=== PATIENT | male | born 1980 | race Caucasian/White ===

== ENCOUNTER 2017-01-11 17:35 | Emergency (ER) | payer MEDICARE, MEDICAID ==
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
== END 2017-01-11 18:08 | disposition home or self-care (01) ==
LOC: ER 17:35
DX: S02.2XXA Fracture of nasal bones, initial encounter for closed fracture (principal); S06.890A Other specified intracranial injury without loss of consciousness, initial encounter; Y04.0XXA Assault by unarmed brawl or fight, initial encounter; Y92.818 Other transport vehicle as the place of occurrence of the external cause; F84.9 Pervasive developmental disorder, unspecified
CPT/HCPCS: 99281